=== PATIENT | female | born 1995 | race Two or more races ===

== ENCOUNTER 2020-02-19 12:56 | Emergency (ER) | payer OTHER | END 2020-02-19 13:55 | disposition other institution (70) | LOC: ED 12:56 | DX: Z02.89 Encounter for other administrative examinations (principal) ==

== ENCOUNTER 2020-02-19 12:56 | Emergency (ER) | payer SELFPAY ==
[~2020-02-19] VITALS: Ht 162.6 cm; Wt 59.0 kg
[2020-02-19 13:16] VITALS: Ht 162.6 cm; Wt 59.0 kg
[2020-02-19 13:56] VITALS: BP 129/87
== END 2020-02-19 13:56 | disposition other institution (70) ==
LOC: ED 12:56 → EDSEX 12:56 → ED 13:56
DX: N39.0 Urinary tract infection, site not specified (principal); F15.10 Other stimulant abuse, uncomplicated; F12.10 Cannabis abuse, uncomplicated